=== PATIENT | male | born 1975 | race American Indian/Alaskan Native ===

== ENCOUNTER 2018-03-28 14:38 | Emergency (ER) | payer OTHER, MEDICAID ==
--- NOTE | 2018-03-28 14:45 | EDPHY ---
HPI/HX/ROS/PE/MDM Narrative: CHIEF COMPLAINT: Med clearance, possible meth use HPI: The patient is a 42 y/o male with a history of meth use and hepatitis C arriving with police for medical clearance. His girlfriend called 911 for a medical clearance and believes he took meth. He denies taking meth but was inappropriately interacting with police and EMS, prompting them to place him in handcuffs. He has been place on an [employer] hold by police. REVIEW OF SYSTEMS: Aside from elements discussed in the HPI, a comprehensive 10-point review of systems was reviewed and is negative. PMH: Meth use, hepatitis C SOCIAL HISTORY: Staying in [place], unemployed, illicit drug use PHYSICAL EXAM: General:Patient is anxious, hyperactive, picking at self. ENT:Eyes are normal to inspection. ENT inspection normal. Neck: Normal inspection. Full range of motion. Respiratory:No respiratory distress. Breath sounds normal bilaterally. Cardiovascular: Strong peripheral pulses. Normal cap refill. Extremities: Normal appearance. Full range of motion. Neuro: Normal motor function. Normal sensory function. ED Course: The patient arrived with police to be medically cleared for an [employer] hold. His girlfriend called 911 for medical clearance believing he had used meth. He was inappropriate with EMS and police and was placed in restraints. 6:20 PM- The patient is able to walk alone and is ready to be discharged. MDM: This patient presents with signs and symptoms of meth abuse. I see no signs of trauma or other medical emergency. I think he is safe for discharge to [facility] for further management. - Data Points Laboratory Results: 03/28/18 14:51 POC Glucose 86 mg/dL mg/dL (70-100) Medications Given: Discontinued Medications Lorazepam (Ativan Injection) 1 mg IVP EDNOW ONE Stop: 03/28/18 14:53 Last Admin: 03/28/18 15:01 Dose: 1 mg Point of Care Test Results: Chemistry 03/28/18 14:51 POC Glucose 86 mg/dL mg/dL (70-100) General Time Seen by Provider: 03/28/18 14:40 Initial Vital Signs: Initial Vital Signs Temperature (C) 36.7 C 03/28/18 15:02 Heart Rate 108 H 03/28/18 15:02 Respiratory Rate 16 03/28/18 15:02 Blood Pressure 126/78 H 03/28/18 15:02 O2 Sat (%) 93 03/28/18 15:02 O2 Delivery Mode Room Air Allergies/Adverse Reactions: No Known Allergies Allergy (Unverified 07/22/16 14:34) Home Medications: Medication Instructions Recorded Risjannettedamelvin 03/28/18 Departure - Departure Disposition: Law Enforcement/Court/Residential Clinical Impression: Methamphetamine use Condition: Good Instructions: Methamphetamine Abuse (ED) Additional Instructions: 1. Please do not take illicit drugs. 2. Return to the ED for any worsening of condition. Referrals: [facility],. [Clinic] - As per Instructions Report Scribed for: Som Johnson Report Scribed by: Barbara Bales Date of Report: 03/28/18 Time of Report: 15:23 Physician Review and Approval Statement: Portions of this note were transcribed by an ED scribe. I personally performed the history, physical exam, and medical decision making; and confirm the accuracy of the information in the transcribed note.
[2018-03-28] MEDS ORDERED: LORazepam 2 MG/ML INJ IVP ONE (14:52)
[2018-03-28 18:32] VITALS: BP 135/78
== END 2018-03-28 18:33 ==
LOC: EDUNIT#
DX: F15.90 Other stimulant use, unspecified, uncomplicated (principal)
CPT/HCPCS: 96374; 99284; J2060

== ENCOUNTER 2018-06-24 16:51 | Emergency (ER) | payer MEDICAID ==
--- NOTE | 2018-06-24 17:16 | EDPHY ---
H & P Smoking Status: Current every day smoker Time Seen by Provider: 06/24/18 17:04 HPI/ROS: CHIEF COMPLAINT: Erratically behavior HISTORY OF PRESENT ILLNESS: The patient is a 42-year-old male presents emergency department for EMS. Patient has history of meth use and hepatitis C is been in the emergency department previously for medical clearance. Patient was having hemorrhagic behavior earlier today was brought to the emergency department. Per report, the patient was walking into traffic making done type motions with this hands. He denies drugs or alcohol. The patient has no complaints. He is not answer all my questions clearly. REVIEW OF SYSTEMS: 10 systems were reveiwed and are negative with the exception of the elements mentioned in the history of present illness. (Maddie Osborn) Past Medical/Surgical History: Includes methamphetamine abuse, hepatitis-C Social history: The patient is homeless and lives in [place]. (Maddie Osborn) Physical Exam: Vitals noted GENERAL: Dirty, no acute distress, alert. HEENT: Eyes normal to inspection, normal pharynx, no signs of dehydration. NECK: Normal, supple. RESPIRATORY: Clear to auscultation bilaterally, no rales, rhonchi or wheezing. CVS: Regular rate and rhythm, no rubs, murmurs, or gallops. ABDOMEN: Soft, nontender, nondistended, no organomegaly. BACK: Normal to inspection, no CVA tenderness. SKIN: Multiple tattoos. Normal color, no rash, warm, dry. No pallor. EXTREMITIES: No pedal edema, no calf tenderness, no Homans sign or cords, no joint swelling. NEURO/PSYCH: Alert and oriented, normal mood and affect, normal motor sensory exam. (Maddie Osborn S) Constitutional: Initial Vital Signs Temperature (C) 36.8 C 06/24/18 17:02 Heart Rate 105 H 06/24/18 17:02 Respiratory Rate 18 06/24/18 17:02 Blood Pressure 140/84 H 06/24/18 17:02 O2 Sat (%) 95 06/24/18 17:02 O2 Delivery Mode Room Air Allergies/Adverse Reactions: No Known Allergies Allergy (Unverified 07/22/16 14:34) Home Medications: Medication Instructions Recorded Risperdal 03/28/18 Medical Decision Making ED Course/Re-evaluation: In the emergency department I discussed plan the patient. Answered all his questions. Patient will have evaluation by [facility]. CBC and chemistry unremarkable. Alcohol negative. Tylenol and aspirin negative. Still awaiting urine tox. No new complaints. The patient is stable in the room. 2030: Patient is signed out to Dr. Ziegler at change of shift. I have considered the patient is taking methamphetamine is altered due to his use of this drug. He has used it in the past. His condition improves he can be discharged home. Otherwise he will need psychiatric evaluation. (Maddie Osborn) [id number]: Patient resting comfortably. He denies suicidal homicidal ideation he states he feels fine. He is eager for discharge. He would like his personal belongings back. He denies wanting to hurt himself or anybody else. Admits to methamphetamine. He is not acutely psychotic contracts for safety. I recommend he does not do meth. As it is dangerous. He understands. (Darek Cruz) Differential Diagnosis: My differential includes but is not limited to methamphetamine abuse, drug use, alcohol abuse, electrolyte abnormality, sugar abnormality, dehydration, psychosis (Maddie Osborn) Other Provider: I assumed care of this patient at [address] Maddie Osborn. Care was turned over to Dr. Darek Cruz at 1:00 a.m.. Patient was stable throughout my evaluation. His mentation has continued to clear. He has not provided a urine sample at this point. He does continue to believe that his 1980. He will most likely need more time for detox and consideration of mental health evaluation. (Ketty Ziegler) - Data Points Laboratory Results: Laboratory Results 06/24/18 17:05 06/24/18 17:05 06/24/18 06/24/18 17:05 17:05 WBC 8.33 10^3/uL 10^3/uL (3.80-9.50) RBC 4.37 10^6/uL L 10^6/uL (4.40-6.38) Hgb 14.0 g/dL g/dL (13.7-17.5) Hct 41.1 % % (40.0-51.0) MCV 94.1 fL fL (81.5-99.8) MCH 32.0 pg pg (27.9-34.1) MCHC 34.1 g/dL g/dL (32.4-36.7) RDW 14.2 % % (11.5-15.2) Plt Count 199 10^3/uL 10^3/uL (150-400) MPV 10.9 fL fL (8.7-11.7) Neut % (Auto) 39.0 % L % (39.3-74.2) Lymph % (Auto) 47.3 % H % (15.0-45.0) [place] % (Auto) 11.2 % % (4.5-13.0) Eos % (Auto) 1.7 % % (0.6-7.6) Baso % (Auto) 0.6 % % (0.3-1.7) Nucleat RBC Rel Count 0.0 % % (0.0-0.2) Absolute Neuts (auto) 3.25 10^3/uL 10^3/uL (1.70-6.50) Absolute Lymphs (auto) 3.94 10^3/uL H 10^3/uL (1.00-3.00) Absolute Monos (auto) 0.93 10^3/uL H 10^3/uL (0.30-0.80) Absolute Eos (auto) 0.14 10^3/uL 10^3/uL (0.03-0.40) Absolute Basos (auto) 0.05 10^3/uL 10^3/uL (0.02-0.10) Absolute Nucleated RBC 0.00 10^3/uL 10^3/uL (0-0.01) Immature Gran % 0.2 % % (0.0-1.1) Immature Gran # 0.02 10^3/uL 10^3/uL (0.00-0.10) Sodium 142 mEq/L mEq/L (135-145) Potassium 3.5 mEq/L mEq/L (3.3-5.0) Chloride 105 mEq/L mEq/L (97-110) Carbon Dioxide 23 mEq/l mEq/l (22-31) Anion Gap 14 mEq/L mEq/L (8-16) BUN 16 mg/dL mg/dL (7-23) Creatinine 0.7 mg/dL mg/dL (0.7-1.3) Estimated GFR > 60 Glucose 110 mg/dL H mg/dL (70-100) Calcium 9.0 mg/dL mg/dL (8.5-10.4) Salicylates < 1.0 mg/dL L mg/dL (2.0-20.0) Acetaminophen < 10 mcg/mL L mcg/mL (10-30) Ethyl Alcohol 11 mg/dL H mg/dL (0-10) Departure - Departure Disposition: Home, Routine, Self-Care Clinical Impression: Polysubstance abuse Altered mental status Qualifiers: Altered mental status type: unspecified Qualified Code(s): R41.82 - Altered mental status, unspecified Condition: Good Instructions: Methamphetamine Abuse (ED) Referrals: [facility],. [Clinic] - 5-7 days, call for appt.
[2018-06-24 17:24] LABS: PLATELET COUNT 199 10^3/uL (150-400)
[2018-06-25 04:42] VITALS: BP 118/68
== END 2018-06-25 04:44 | disposition home or self-care (01) ==
LOC: EDUNIT#
DX: F15.90 Other stimulant use, unspecified, uncomplicated (principal); R41.82 Altered mental status, unspecified; F17.200 Nicotine dependence, unspecified, uncomplicated; Z59.0 Homelessness
CPT/HCPCS: G0480